=== PATIENT | male | born 1985 | race Two or more races ===

== ENCOUNTER 2018-02-07 15:27 | Emergency (ER) | payer MEDICAID, OTHER ==
[2018-02-07 15:54] VITALS: BP 147/88
== END 2018-02-07 16:28 | disposition home or self-care (01) ==
LOC: ER 15:27
DX: L25.9 Unspecified contact dermatitis, unspecified cause (principal); F17.210 Nicotine dependence, cigarettes, uncomplicated

== ENCOUNTER 2018-03-10 12:48 | Emergency (ER) | payer OTHER ==
[~2018-03-10] VITALS: Ht 180.3 cm; Wt 68.0 kg
[2018-03-10 13:15] VITALS: BP 128/88
== END 2018-03-10 14:18 | disposition home or self-care (01) ==
LOC: ER 12:48
DX: B35.6 Tinea cruris (principal); F17.210 Nicotine dependence, cigarettes, uncomplicated; Z88.8 Allergy status to other drugs, medicaments and biological substances